=== PATIENT | male | born 1980 | race Caucasian/White ===

== ENCOUNTER 2019-04-26 14:26 | Outpatient (CLI) | payer OTHER | END 2019-04-26 14:29 | disposition home or self-care (01) | LOC: RAD 14:26 | DX: M25.572 Pain in left ankle and joints of left foot (principal) ==

== ENCOUNTER 2019-04-26 15:46 | Outpatient (CLI) | payer OTHER | END 2019-04-26 16:11 | disposition home or self-care (01) | LOC: LAB 15:46 | DX: M25.572 Pain in left ankle and joints of left foot (principal) ==